=== PATIENT | female | born 1990 | race Caucasian/White ===

== ENCOUNTER 2020-05-21 06:00 | Inpatient (IN) | payer BC, SELFPAY ==
[2020-05-21] MEDS ORDERED: Cefepime 2 GM VIAL ONE (19:01)
[2020-05-21 19:03] LABS: #Eosinphils 0.2 thou/uL (0.0-0.7); #Lymphocytes 2.8 thou/uL (1.20-3.40); #Monocytes 0.4 thou/uL (0.11-0.59); #Neutrophils 7.9 thou/uL (1.40-6.50); %Basophils 0.4 % (0.0-1.0); %Eosinophils 1.4 % (0.0-10.0); %Lymphocytes 24.8 % (21.0-51.0); %Monocytes 3.9 % (0.0-10.0); %Neutrophils 69.5 % (42.0-75.0); Hemoglobin 14.2 g/dL (12.0-16.0); Mean Corpuscular HGB CONC 33.8 g/dL (32.0-36.0); Mean Corpuscular Hemoglobin 30.8 pg (27.0-31.0); Mean Corpuscular Volume 91.1 fL (78.0-98.0); Mean Platelet Volume 7.6 fL (7.4-10.4); Platelet Count 265 thou/uL (130-400); RBC Distribution Width 11.6 % (11.5-14.5); Red Blood Cell (RBC) Count 4.61 mill/uL (4.20-5.40); White Blood Cell (WBC) Count 11.4 thou/uL (4.8-10.8)
[2020-05-21] MEDS ORDERED: Vancomycin HCl 1.5 GM in Sodium Chloride 0.9% 250 ML 300 ML IVPB SCH (19:15)
[2020-05-21 19:26] LABS: ALT (SGPT) 14 U/L (8-55); AST (SGOT) 24 U/L (5-34); Albumin 4.2 g/dL (3.5-5.0); Alkaline Phosphatase 88 U/L (40-110); Anion Gap 13 mmol/L (10-20); BUN (Urea Nitrogen) 9 mg/dL (7.0-18.7); Bilirubin, Total 0.5 mg/dL (0.2-1.2); Calc. Creatinine Clearance 0 mL/min (70-130); Calcium 9.3 mg/dL (7.8-10.44); Carbon Dioxide 28 mmol/L (22-29); Chloride 103 mmol/L (98-107); Globulin 3.7 g/dL (2.4-3.5); Glucose 86 mg/dL (70-105); Potassium 4.2 mmol/L (3.5-5.1); Protein, Total 7.9 g/dL (6.0-8.3); Sodium 140 mmol/L (136-145)
--- NOTE | 2020-05-21 21:37 | PDOC.HHP ---
Hospitalist HPI skin infection History of Present Illness: This is a 30-year-old female with no significant past medical history who presents with rapidly increasing skin infection on her right lateral hip region. She notes that she saw a small pea-sized lesion a couple of days ago however this has rapidly increased. It is about 10 cm in diameter now. She has been drying rings around it and she is noted rapid expansion todaylea ding her to come to the ED for further evaluation. She denies any fever chills vomiting however the lesion is particularly painful and tender. She notes having had a similar lesion about 8 months ago for which she required hospital stay and antibiotic treatment to vancomycin. She knows that no cul tures were done. At presentation blood pressure was 134/89, pulse 108, respirate 18, temperature 98.1 and saturation 100% on room air. Labs showed leukocytosis of 11.4, chemistry was generally unremarkable. She was started on vancomycin and cefepime and hospitalist team consulted for admission Allergies/Adverse Reactions: Allergy/AdvReac Type Severity Reaction Status Date / Time Sulfa (Sulfonamide Allergy Intermediate Rash Verified 05/21/20 22:48 Antibiotics) Latex, Natural Rubber Allergy Verified 05/21/20 22:48 Home Medications: Medication Instructions Recorded Confirmed Type Ascorbic Acid [Vitamin C] 1,000 mg PO BID 05/22/20 05/22/20 History Calcium Carbonate [Calcium] 1,000 mg PO DAILY 05/22/20 05/22/20 History Cetirizine HCl [Zyrtec] 10 mg PO DAILY 05/22/20 05/22/20 History Cholecalciferol (Vitamin D3) 125 mg PO DAILY 05/22/20 05/22/20 History [Vitamin D] [place]-3 Fatty Acids/Fish Oil 64 mg PO DAILY 05/22/20 05/22/20 History [[place] 3 1,000 mg Softgel] Zinc 50 mg PO DAILY 05/22/20 05/22/20 History Doxycycline Hyclate 100 mg PO BID #20 capsule 05/24/20 Rx Lactobacillus [Floranex] 1 tab PO DAILY tab 05/24/20 Rx Past History: PMHx: Abdominal wall skin infection PSHx: None of significant FHx: Diabetes mellitus Social: Occasional alcohol, never smoked Hospitalist HPI ROS Constitutional: denies: fever, chills, sweats Respiratory: denies: cough, shortness of breath, hemoptysis Gastrointestinal: denies: nausea, vomiting, abdominal pain Musculoskeletal: denies: neck pain, shoulder pain, arm pain Neurological: denies: weakness, numbness, incoordination All other systems reviewed; all pertinent +/- noted in HPI/Subj Hospitalist Exam General Appearance: awake alert Eye: PERRL Heart: RRR, no murmur, no gallops, normal peripheral pulses Gastrointestinal: soft, non-tender, non-distended, normal bowel sounds Extremities - other findings: 20 cm diameter erythema and induration on the lateral right thigh Neurological: cranial nerve grossly intact, no weakness, no focal deficits Musculoskeletal: normal tone, normal strength Psychiatric: normal affect, normal behavior, A&O x 3 Hospitalist Results Result Diagrams: 05/22/20 13:02 05/22/20 13:02 Lab results: Laboratory Last Values WBC 11.4 thou/uL (4.8-10.8) H 05/21/20 18:20 RBC 4.61 mill/uL (4.20-5.40) 05/21/20 18:20 Hgb 14.2 g/dL (12.0-16.0) 05/21/20 18:20 Hct 42.0 % (36.0-47.0) 05/21/20 18:20 MCV 91.1 fL (78.0-98.0) 05/21/20 18:20 MCH 30.8 pg (27.0-31.0) 05/21/20 18:20 MCHC 33.8 g/dL (32.0-36.0) 05/21/20 18:20 RDW 11.6 % (11.5-14.5) 05/21/20 18:20 Plt Count 265 thou/uL (130-400) 05/21/20 18:20 MPV 7.6 fL (7.4-10.4) 05/21/20 18:20 Neutrophils % 69.5 % (42.0-75.0) 05/21/20 18:20 Lymphocytes % 24.8 % (21.0-51.0) 05/21/20 18:20 Monocytes % 3.9 % (0.0-10.0) 05/21/20 18:20 Eosinophils % 1.4 % (0.0-10.0) 05/21/20 18:20 Basophils % 0.4 % (0.0-1.0) 05/21/20 18:20 Neutrophils # 7.9 thou/uL (1.40-6.50) H 05/21/20 18:20 Lymphocytes # 2.8 thou/uL (1.20-3.40) 05/21/20 18:20 Monocytes # 0.4 thou/uL (0.11-0.59) 05/21/20 18:20 Eosinophils # 0.2 thou/uL (0.0-0.7) 05/21/20 18:20 Basophils # 0.0 thou/uL (0.0-0.2) 05/21/20 18:20 Sodium 140 mmol/L (136-145) 05/21/20 18:20 Potassium 4.2 mmol/L (3.5-5.1) 05/21/20 18:20 Chloride 103 mmol/L (98-107) 05/21/20 18:20 Carbon Dioxide 28 mmol/L (22-29) 05/21/20 18:20 Anion Gap 13 mmol/L (10-20) 05/21/20 18:20 BUN 9 mg/dL (7.0-18.7) 05/21/20 18:20 Creatinine 0.70 mg/dL (0.6-1.1) 05/21/20 18:20 Estimated GFR (MDRD) Greater than 90 05/21/20 18:20 Glucose 86 mg/dL (70-105) 05/21/20 18:20 Lactic Acid 0.7 mmol/L (0.5-2.2) 05/21/20 19:15 Calcium 9.3 mg/dL (7.8-10.44) 05/21/20 18:20 Total Bilirubin 0.5 mg/dL (0.2-1.2) 05/21/20 18:20 AST 24 U/L (5-34) 05/21/20 18:20 ALT 14 U/L (8-55) 05/21/20 18:20 Alkaline Phosphatase 88 U/L (40-110) 05/21/20 18:20 Serum Total Protein 7.9 g/dL (6.0-8.3) 05/21/20 18:20 Albumin 4.2 g/dL (3.5-5.0) 05/21/20 18:20 Globulin 3.7 g/dL (2.4-3.5) H 05/21/20 18:20 Albumin/Globulin Ratio 1.1 g/dL (1.2-2.2) L 05/21/20 18:20 Hospitalist H&P A/P Plan: This 30-year-old female patient history of abdominal wound infection presenting with right lateral thigh cellulitis. Cellulitis Received vancomycin and cefepimegiven rapid expansion we will add clindamycin Surgery consult in a.m. for possible I&D. VT prophylaxisLovenox CODE STATUS full code
[2020-05-21 23:01] VITALS: BMI 39.3
[2020-05-21] MEDS: HYDROcodone/Acetaminophen 7.5/325 mg Tablet PO PRN (23:06)
[2020-05-21] MEDS: Clindamycin/D5W 600 MG in Premix Bag 1 BAG IVPB SCH (23:07)
[2020-05-22] MEDS: HYDROcodone/Acetaminophen 7.5/325 mg Tablet PO PRN ×2 (06:30→14:05)
[2020-05-22] MEDS: Clindamycin/D5W 600 MG in Premix Bag 1 BAG IVPB SCH ×4 (07:43→23:17)
[2020-05-22] MEDS ORDERED: Cetirizine HCl 10 MG TAB PO SCH (09:00)
[2020-05-22] MEDS ORDERED: Cefepime 2 GM in Sodium Chloride 0.9% 100 ML IVPB SCH (09:00)
[2020-05-22] MEDS ORDERED: Vancomycin 1.5 GRAM/300 ML BAG 1.5 GM in Premix Bag 1 BAG IVPB SCH (09:00)
[2020-05-22] MEDS: Lactinex Tablet PO SCH (09:06)
[2020-05-22] MEDS: Loratadine 10 MG TAB PO SCH (09:07)
[2020-05-22] MEDS: Enoxaparin Sodium 40 MG/0.4 ML SYRINGE SC SCH (09:07)
[2020-05-22] MEDS: VANCOMYCIN 2 GRAM/400 ML BAG 2 GM in Premix Bag 1 BAG IVPB SCH ×2 (09:12→16:32)
--- NOTE | 2020-05-22 10:06 | PDOC.HOSPP ---
- Subjective Encounter Date: 05/22/20 Subjective: Feels ok. Modest discomfort. Has not bee on any po abx prior to presenting. - Objective Vital Signs & Weight: Vital Signs (12 hours) Temp Pulse Resp BP Pulse Ox 05/22/20 08:00 98.2 F 74 20 111/73 97 05/22/20 05:00 97.6 F 72 18 109/72 98 05/21/20 23:07 98.2 F 67 18 112/74 98 Weight Weight 251 lb I&O: 05/21/20 05/22/20 05/23/20 06:59 06:59 06:59 Intake Total 700 Balance 700 Result Diagrams: 05/21/20 18:20 05/21/20 18:20 Hospitalist ROS - Medication Medications: Active Medications Generic Name Dose Route Start Last Admin Trade Name Freq PRN Reason Stop Dose Admin Hydrocodone Bitart/Acetaminophen 1 tab 05/21/20 21:25 05/22/20 06:30 Hydrocodone/Acetaminophen 7.5/325 Mg Tablet PO 1 tab Q4H PRN Administration Moderate Pain (4-6) Acidophilus 1 tab 05/22/20 09:00 05/22/20 09:06 Lactinex Tablet PO 1 tab DAILY YOANDY Administration Enoxaparin Sodium 40 mg 05/22/20 09:00 05/22/20 09:07 Enoxaparin Sodium 40 Mg/0.4 Ml Syringe SC 40 mg 0900 YOANDY Administration Clindamycin Phosphate/Dextrose 50 mls @ 100 mls/hr 05/21/20 23:59 05/22/20 07:43 600 mg/ Device IVPB Not Given Q6HR YOANDY Vancomycin HCl 2 gm/ Device 400 mls @ 200 mls/hr 05/22/20 09:00 05/22/20 09:12 IVPB 400 mls Q8H YOANDY Administration Loratadine 10 mg 05/22/20 09:00 05/22/20 09:07 Loratadine 10 Mg Tab PO 10 mg DAILY YOANDY Administration Sodium Chloride 10 ml 05/22/20 09:00 05/22/20 09:07 Flush - Normal Saline 10 Ml Syringe IVF 10 ml Q12HR YOANDY Administration Hospitalist Exam Vitals: Vital Signs (12 hours) Temp Pulse Resp BP Pulse Ox 05/22/20 08:00 98.2 F 74 20 111/73 97 05/22/20 05:00 97.6 F 72 18 109/72 98 05/21/20 23:07 98.2 F 67 18 112/74 98 Weight Weight 251 lb General Appearance: NAD, awake alert General - other findings: Obese. Heart: RRR, no murmur, no gallops, no rubs, normal peripheral pulses Respiratory: CTAB, no wheezes, no rales, no ronchi, normal chest expansion, no tachypnea, normal percussion Gastrointestinal: soft, non-tender, non-distended, normal bowel sounds, no palpable masses, no hepatomegaly, no splenomegaly, no bruit Extremities: no cyanosis, no clubbing, no edema Skin - other findings: Right hip lesion with raised area 2x3 cm with halo of erythema. Neurological: no focal deficits Musculoskeletal: normal tone, normal strength, no muscle wasting Psychiatric: normal affect, normal behavior, A&O x 3 Hosp A/P (1) Abscess or cellulitis of groin Code(s): [id number] - Status: Acute - Plan She needs I and D and then can likely transition to po abx. Surgery consulted. Continue Vancomycin, Clinda. D/C the Cefepime. Hx of C diff. Continue probiotics. De-escalate abx as soon as the I and D performed.
[2020-05-22] MEDS ORDERED: Lidocaine 1% w/Epinephrine 1:100K 20 ML VIAL IJ SCH (11:00)
--- NOTE | 2020-05-22 11:51 | PDOC.OP ---
Operative Note - Operative Note Operative Note: PROCEDURE: Incision and drainage of right hip abscess SURGEON: Mikael Perez M.D. DATE: 05/22/2019 PREOPERATIVE DIAGNOSIS: Right hip abscess POSTOPERATIVE DIAGNOSIS: Right hip abscess HISTORY: Patient with 2-day history of worsening cellulitis and swelling of the right hip. Abscess diagnosed on physical examination and incision and drainage recommended. FINDINGS: Subcutaneous abscess. PROCEDURE IN DETAIL: After informed consent was obtained the right hip was prepped with ChloraPrep and sterilely draped. Local anesthesia was infused the skin and subcutaneous tissue overlying the abscess. An incision was made and the abscess drained. Pus was sent for Gram stain and culture. The abscess cavity was irrigated and then packed with quarter inch iodoform. Gauze dressing was placed. Estimated blood loss was minimal. There were no complications. Specimen is pus for Gram stain and abscess.
[2020-05-22 13:25] LABS: #Eosinphils 0.2 thou/uL (0.0-0.7); #Lymphocytes 1.8 thou/uL (1.20-3.40); #Monocytes 0.5 thou/uL (0.11-0.59); #Neutrophils 9.1 thou/uL (1.40-6.50); %Basophils 0.2 % (0.0-1.0); %Eosinophils 1.4 % (0.0-10.0); %Lymphocytes 15.7 % (21.0-51.0); %Monocytes 4.3 % (0.0-10.0); %Neutrophils 78.5 % (42.0-75.0); Hemoglobin 14.3 g/dL (12.0-16.0); Mean Corpuscular HGB CONC 32.8 g/dL (32.0-36.0); Mean Corpuscular Hemoglobin 29.6 pg (27.0-31.0); Mean Corpuscular Volume 90.5 fL (78.0-98.0); Mean Platelet Volume 7.2 fL (7.4-10.4); Platelet Count 299 thou/uL (130-400); RBC Distribution Width 11.8 % (11.5-14.5); Red Blood Cell (RBC) Count 4.82 mill/uL (4.20-5.40); White Blood Cell (WBC) Count 11.6 thou/uL (4.8-10.8)
[2020-05-22 13:27] LABS: Hemoglobin A1c 4.6 % (4.0-6.0)
[2020-05-22 13:42] LABS: Anion Gap 12 mmol/L (10-20); BUN (Urea Nitrogen) 6 mg/dL (7.0-18.7); Calc. Creatinine Clearance 244 mL/min (70-130); Calcium 9.1 mg/dL (7.8-10.44); Carbon Dioxide 29 mmol/L (22-29); Chloride 102 mmol/L (98-107); Glucose 88 mg/dL (70-105); Potassium 3.7 mmol/L (3.5-5.1); Sodium 139 mmol/L (136-145)
--- NOTE | 2020-05-22 20:50 | CON ---
DATE OF CONSULTATION: 05/22/2020 REASON FOR CONSULTATION: Right hip abscess. HISTORY OF PRESENT ILLNESS: Ms. Jones is a 30-year-old woman who presented to the hospital with rapidly increasing area of swelling and redness to her right hip. She states that at first it just looked like a small pimple in the right hip area, but it rapidly got larger and so she came to the emergency room. She denies any fevers or chills. She was placed on antibiotics last night and since then, the erythema has extended slightly, but is not growing as fast as it used to and is not as angry and red as it was before. She denies any history of injury to the area. She has a previous history of a similar abscess on her lower abdominal wall, which required incision and drainage and brief admission. She is otherwise healthy. PAST MEDICAL HISTORY: None. PAST SURGICAL HISTORY: None. FAMILY HISTORY: Diabetes. SOCIAL HISTORY: Rare alcohol, no tobacco or drugs. ALLERGIES: SHE IS ALLERGIC TO SULFA AND LATEX. MEDICATIONS: None. REVIEW OF SYSTEMS: 10-system review of systems is negative except per HPI. PHYSICAL EXAMINATION: VITAL SIGNS: Normal. HEENT: Unremarkable. NECK: Supple without lymphadenopathy or thyroid nodules. She is not jaundiced or icteric. She is not flushed or toxic in appearance. HEART: Regular in its rate and rhythm without murmurs, rubs, or gallops. LUNGS: Clear to auscultation bilaterally. ABDOMEN: Soft, nontender, nondistended. She has a healed I and D site in the lower abdomen with no palpable residual cyst or skin abnormality. She has a firm, raised 2 x 3 cm area over the right hip with cellulitis extending for several centimeters in all directions, the cellulitis extends about 2 cm beyond the margin of her last skin marking which she states was drawn last night. EXTREMITIES: Warm and well perfused without edema. She does not have any inguinal lymphadenopathy. ASSESSMENT: Right hip subcutaneous abscess. I have recommended incision and drainage of this, which was done as detailed in a separate procedure note. She had a moderate-sized subcutaneous abscess tracking mostly medially and superiorly. This was completely drained and packed. Cultures were sent. The packing will be changed tomorrow and the patient will be instructed on wound care. Job ID: [id number] [facility]
[2020-05-23] MEDS: HYDROcodone/Acetaminophen 7.5/325 mg Tablet PO PRN (00:27)
[2020-05-23 00:57] LABS: Vancomycin, Trough 16.4 ug/mL
[2020-05-23] MEDS: VANCOMYCIN 2 GRAM/400 ML BAG 2 GM in Premix Bag 1 BAG IVPB SCH ×3 (01:24→18:10)
[2020-05-23 02:31] LABS: SARS-CoV-2 PCR by NAA DETECTED (NotDetected)
[2020-05-23] MEDS: Clindamycin/D5W 600 MG in Premix Bag 1 BAG IVPB SCH ×2 (05:42→12:57)
[2020-05-23] MEDS: Enoxaparin Sodium 40 MG/0.4 ML SYRINGE SC SCH (08:50)
[2020-05-23] MEDS: Loratadine 10 MG TAB PO SCH (08:50)
[2020-05-23] MEDS: Lactinex Tablet PO SCH (08:50)
[2020-05-23] MEDS: Acetaminophen 325 MG TAB PO PRN ×2 (09:05→12:58)
--- NOTE | 2020-05-23 10:20 | PDOC.GSPN ---
Surgery Progress Note: Subj - Subjective Narrative: Patient is feeling okay. The erythema has spread a little bit. No fevers or chills. Vital signs normal. Covid test came back positive. Gram- positive cocci in clusters on Gram stain of abscess. Erythema has extended a bit posteriorly. No expressible purulence. Abscess cavity was repacked. Assessment/plan: Status post incision and drainage of right hip abscess. Likely staph aureus based on Gram stain results. She is on vancomycin. Abscess is completely drained but patient has persistent cellulitis which has actually advanced a bit. No new surgical recommendations. Surgery Progress Note: Obj - Vital signs Vital signs: Vital Signs - Most Recent Temp Pulse Resp BP Pulse Ox 98.0 F 75 16 130/82 98 05/23/20 07:16 05/23/20 07:16 05/23/20 07:16 05/23/20 07:16 05/23/20 07:16 Surgery Progress Note: Results - Labs Result Diagrams: 05/22/20 13:02 05/22/20 13:02 Lab results: Laboratory Results - last 12 hr 05/22/20 05/23/20 08:05 00:31 Vancomycin Trough 16.4 SARS CoV-2 Rapid Source Nasopharyngeal Swab SARS-CoV-2 RNA ([facility]) DETECTED A*
--- NOTE | 2020-05-23 15:24 | PDOC.HOSPP ---
- Subjective Encounter Date: 05/23/20 Subjective: Feels well in general. Not having much pain. Actually feels somewhat better after the incision and drainage. The erythema has expanded a bit. Patient reports that she had Covid in February. She is currently asymptomatic. - Objective Vital Signs & Weight: Vital Signs (12 hours) Temp Pulse Resp BP Pulse Ox 05/23/20 09:15 98 05/23/20 07:16 98.0 F 75 16 130/82 98 05/23/20 05:44 97.8 F 68 16 110/65 98 Weight Weight 250 lb I&O: 05/22/20 05/23/20 05/24/20 06:59 06:59 06:59 Intake Total 700 Balance 700 Result Diagrams: 05/22/20 13:02 05/22/20 13:02 Hospitalist ROS - Medication Medications: Active Medications Generic Name Dose Route Start Last Admin Trade Name Freq PRN Reason Stop Dose Admin Acetaminophen 650 mg 05/21/20 21:25 05/23/20 12:58 Acetaminophen 325 Mg Tab PO 650 mg Q4H PRN Administration Headache/Fever/Mild Pain (1-3) Hydrocodone Bitart/Acetaminophen 1 tab 05/21/20 21:25 05/23/20 00:27 Hydrocodone/Acetaminophen 7.5/325 Mg Tablet PO 1 tab Q4H PRN Administration Moderate Pain (4-6) Acidophilus 1 tab 05/22/20 09:00 05/23/20 08:50 Lactinex Tablet PO 1 tab DAILY YOANDY Administration Enoxaparin Sodium 40 mg 05/22/20 09:00 05/23/20 08:50 Enoxaparin Sodium 40 Mg/0.4 Ml Syringe SC 40 mg 0900 YOANDY Administration Clindamycin Phosphate/Dextrose 50 mls @ 100 mls/hr 05/21/20 23:59 05/23/20 12:57 600 mg/ Device IVPB 50 mls Q6HR YOANDY Administration Vancomycin HCl 2 gm/ Device 400 mls @ 200 mls/hr 05/22/20 09:00 05/23/20 08:51 IVPB 400 mls Q8H YOANDY Administration Loratadine 10 mg 05/22/20 09:00 05/23/20 08:50 Loratadine 10 Mg Tab PO 10 mg DAILY YOANDY Administration Sodium Chloride 10 ml 05/22/20 09:00 05/23/20 08:51 Flush - Normal Saline 10 Ml Syringe IVF 10 ml Q12HR YOANDY Administration Hospitalist Exam Vitals: Vital Signs (12 hours) Temp Pulse Resp BP Pulse Ox 05/23/20 09:15 98 05/23/20 07:16 98.0 F 75 16 130/82 98 05/23/20 05:44 97.8 F 68 16 110/65 98 Weight Weight 250 lb General Appearance: NAD, awake alert General - other findings: Obese Heart: RRR, no murmur, no gallops, no rubs, normal peripheral pulses Respiratory: CTAB, no wheezes, no rales, no ronchi, normal chest expansion, no tachypnea, normal percussion Gastrointestinal: soft, non-tender, non-distended, normal bowel sounds, no palpable masses, no hepatomegaly, no splenomegaly, no bruit Extremities: no cyanosis, no clubbing, no edema Skin - other findings: Right hip area with approximately 4" x 8" erythema around incision Musculoskeletal: normal tone, normal strength, no muscle wasting Psychiatric: normal affect, normal behavior, A&O x 3 Hosp A/P (1) Cellulitis and abscess of right lower extremity Code(s): L03.115 - CELLULITIS OF RIGHT LOWER LIMB; L02.415 - CUTANEOUS ABSCESS OF RIGHT LOWER LIMB Status: Acute - Plan She had incision and drainage on 05/22/2020. At this point cultures appear to be staph aureus as expected. Continue Vancomycin, DC Clinda given her history of C. difficile. Hx of C diff. Continue probiotics. De-escalate antibiotics once sensitivities are known. Continue to monitor area of cellulitis. Can likely discharge with p.o. antibiotics once there is clear evidence of improvement. Patient had COVID-19 infection in February 2020. Current positive test reflects persistent viral residue and not active infection. Check with Dr. Lemos. Tsang to DC isolation.
[2020-05-23] MEDS ORDERED: Lidocaine 2% Viscous Solution 10 ML, Aluminum & Magnesium Hydroxide 30 ML SSW SCH (23:59)
[2020-05-24] MEDS: VANCOMYCIN 2 GRAM/400 ML BAG 2 GM in Premix Bag 1 BAG IVPB SCH ×2 (00:22→00:59)
[2020-05-24 00:53] LABS: Vancomycin, Trough 26.6 ug/mL
[2020-05-24 07:40] VITALS: BP 116/76; TEMP 98
[2020-05-24] MEDS: Lactinex Tablet PO SCH (07:57)
[2020-05-24] MEDS: Loratadine 10 MG TAB PO SCH (07:57)
[2020-05-24] MEDS: Enoxaparin Sodium 40 MG/0.4 ML SYRINGE SC SCH (07:58)
[2020-05-24] MEDS ORDERED: VANCOMYCIN 2 GRAM/400 ML BAG 2 GM in Premix Bag 1 BAG IVPB SCH (09:00)
[2020-05-24] MEDS: HYDROcodone/Acetaminophen 7.5/325 mg Tablet PO PRN (09:51)
--- NOTE | 2020-05-24 13:11 | PDOC.GSPN ---
Surgery Progress Note: Subj - Subjective Narrative: Patient is feeling better. She still has some purulent drainage on the outer dressings but the abscess cavity is clean and cellulitis is improving. MRSA on cultures, resistant to clindamycin but sensitive to vancomycin. Assessment/plan: Status post I&D of right hip subcutaneous abscess doing well. Her cousin is a wound care nurse and is going to be helping her with daily packing of the wound at home. I will see her in my clinic in a couple weeks. Surgery Progress Note: Obj - Vital signs Vital signs: Vital Signs - Most Recent Temp Pulse Resp BP Pulse Ox 98.0 F 63 16 116/76 96 05/24/20 07:38 05/24/20 07:38 05/24/20 07:38 05/24/20 07:38 05/24/20 08:00 Surgery Progress Note: Results - Labs Result Diagrams: 05/22/20 13:02 05/22/20 13:02
--- NOTE | 2020-05-25 14:08 | PDOC.DS.DS ---
Provider Date of Admission: 05/22/20 15:01 Date of Discharge: 05/24/20 Admitting Provider: Nir Connors MD Consultations: General Surgery Course Hospital Course: Patient is a 30-year-old female who presented via the emergency department. She had a small pimple-like lesion on her right lateral hip that subsequently grew m uch larger fairly rapidly. Had a large halo of erythema. Patient was diagnosed with abscess with cellulitis. She had incision and drainage on 05/22/2020. She was initially started on vancomycin and clindamycin. However, the patient had a history of C. difficile colitis and therefore the clindamycin was discontinued. Patient was continued on probiotics as well. The culture ultimately grew MRSA. She continued to have dressing changes with general surgery. After the first day the patient cellulitis actually spread a bit further. By the second day it was starting to resolve. Patient remained afebrile and had minimal associated pain other than dressing changes. Based on sensitivities it was felt the patient could appropriately be discharged home on p.o. doxycycline. The patient's cousin is a wound care nurse who would be able to help her with the dressing changes at home. Cleared for discharge from general surgery as well. Patient had COVID-19 infection in February 2020. She tested positive again on her admission screening test. Was felt that this was residual from her initial test. Conferred with ID and the patient was not placed in isolation. Resuscitation Status: 05/21/20 21:25 Resuscitation Status Routine Resuscitation Status: FULL: Full Resuscitation Lab Results: 05/22/20 13:02 05/22/20 13:02 Microbiology - Entire Visit 05/22/20 11:20 Hip - Incision Bacterial Culture - Final Methicillin resistant S.aureus 05/21/20 19:16 Venous blood - Right Arm Blood Culture - Preliminary NO GROWTH AT 48 HOURS 05/21/20 19:16 Venous blood - Left Arm Blood Culture - Preliminary NO GROWTH AT 48 HOURS Vitals: Weight Weight 250 lb Physical Exam: The patient was seen and examined on the day of discharge. Problem (1) Cellulitis and abscess of right lower extremity Code(s): L03.115 - CELLULITIS OF RIGHT LOWER LIMB; L02.415 - CUTANEOUS ABSCESS OF RIGHT LOWER LIMB Status: Acute (2) MRSA infection Code(s): A49.02 - METHICILLIN RESIS STAPH INFECTION, UNSP SITE Status: Acute Plan Prescriptions: Doxycycline Hyclate 100 mg PO BID #20 capsule Home Medications: Medication Instructions Recorded Confirmed Type Ascorbic Acid [Vitamin C] 1,000 mg PO BID 05/22/20 05/22/20 History Calcium Carbonate [Calcium] 1,000 mg PO DAILY 05/22/20 05/22/20 History Cetirizine HCl [Zyrtec] 10 mg PO DAILY 05/22/20 05/22/20 History Cholecalciferol (Vitamin D3) 125 mg PO DAILY 05/22/20 05/22/20 History [Vitamin D] [place]-3 Fatty Acids/Fish Oil 64 mg PO DAILY 05/22/20 05/22/20 History [[place] 3 1,000 mg Softgel] Zinc 50 mg PO DAILY 05/22/20 05/22/20 History Doxycycline Hyclate 100 mg PO BID #20 capsule 05/24/20 Rx Lactobacillus [Floranex] 1 tab PO DAILY tab 05/24/20 Rx Allergies: Sulfa (Sulfonamide Antibiotics) Allergy (Intermediate, Verified 05/21/20 22:48) Rash Latex, Natural Rubber Allergy (Verified 05/21/20 22:48) Discharge Instructions:: Continue daily dressing changes: 1. Remove old packing and place new packing using cotton tipped applicator. 2. Cover with gauze and tape. Call Dr. Perez's office for any questions or concerns, any new or worsening redness, swelling, drainage, uncontrolled pain, and/or fever greater than 101F. Activity:: Activity as Tolerated Nourishment:: No Restrictions Referrals: Mikael Perez MD [Active] - 7 Days (CALL THE OFFICE TO SCHEDULE AN APPOINTMENT. ) Disposition: HOME Quality CORE MEASURES:: N/A
== END 2020-05-24 12:22 | disposition home or self-care (01) | DRG 581 ==
LOC: ERS 18:00 → T4-A 20:11 → OBSVTOIN 05-22 15:01
PROVIDERS: ADMIT Student in an Organized Health Care Education/Training Program; ATTEND Internal Medicine
PROC: 0J9L0ZZ Drainage of Right Upper Leg Subcutaneous Tissue and Fascia, Open Approach (ICD-10-PCS; principal; 2020-05-22)
DX: L03.115 Cellulitis of right lower limb (principal); L02.415 Cutaneous abscess of right lower limb; B95.62 Methicillin resistant Staphylococcus aureus infection as the cause of diseases classified elsewhere; Z88.0 Allergy status to penicillin; Z91.040 Latex allergy status; Z86.16 Personal history of COVID-19; E55.9 Vitamin D deficiency, unspecified; R53.83 Other fatigue
CPT/HCPCS: 36415; 80048; 80053; 80061; 80202; 81001; 82306; 82607; 82746; 83036; 83540; 83550; 83605; 84443; 85025; 87040; 87070; 87077; 87086; 87186; 87205; 87635; 96365; 96367; 96372; 96375; 96376; G0378; J0692; J1650; J3370; J3490; J7050; U0003; U0005